=== PATIENT | male | born 1970 | race Caucasian/White ===

== ENCOUNTER → 2020-08-16 15:45 | Outpatient (CLI) | payer OTHER, SELFPAY ==
--- NOTE | ~2020-08-16 | XR_ITS ---
XR ankle LT min 3V DATE: 08/16/2020 15:55 INDICATION: Left ankle medial pain and swelling. No injury. TECHNIQUE: 4 views COMPARISON: None FINDINGS: There is minimal medial soft tissue swelling. No fracture or dislocation of the ankle or di sruption of the ankle mortise. No periosteal reaction or bone destruction. Plantar calcaneal enthesopathy IMPRESSION: Mild soft tissue swelling Plantar calcaneal enthesopathy Reviewed, dictated and finalized at location B. IAL EDUCATION COORDINATOR
== END ==
PROVIDERS: PCP Family Medicine; Visit Provider Family Medicine
DX: M19.079 Primary osteoarthritis, unspecified ankle and foot (principal); M79.89 Other specified soft tissue disorders; M77.32 Calcaneal spur, left foot
CPT/HCPCS: 73610

== ENCOUNTER 2021-07-31 00:15 | Day surgery (SDC) | payer OTHER, SELFPAY ==
[2021-07-18 15:23] VITALS: BMI 29.1
[2021-07-31 06:59] VITALS: BP 129/69; PULSE 91; RESP 20; TEMP 36.8; O2SAT 99
[2021-07-31] MEDS: LACTATED RINGERS 1,000 ML 150 ML IV CONT (07:10)
--- NOTE | 2021-07-31 07:22 | WPDANESEPPF ---
Anes - Initial Pre Proc Eval Procedure: Operation Date: 07/31/21 08:00 Proposed Procedures p Screening Colonoscopy - Mika Bell MD Date/Time: 07/31/21 07:22 Surgeon: Mika Bell MD Pre Op Diagnosis: neoplasm screening Patient Data Age: 51 Gender: M Height: 1.88 m Weight: 103.5 kg Last Vital Signs Temp 36.8 C 07/31/21 06:59 Pulse 91 07/31/21 06:59 Resp 20 07/31/21 06:59 BP 129/69 07/31/21 06:59 Pulse Ox 99 07/31/21 06:59 Allergies Allergy/AdvReac Type Severity Reaction Status Date / Time No Known Allergies Allergy Verified 07/31/21 06:57 Home Medications Medication Instructions Recorded Confirmed Type montelukast 10 mg tablet 10 mg PO QHS #90 tablet 02/20/21 07/18/21 Rx alprazolam 0.25 mg tablet 0.25 mg PO TID PRN 90 Days #90 06/12/21 07/18/21 Rx tablet esomeprazole magnesium 40 mg PO DAILY 07/18/21 07/18/21 History sertraline [Zoloft] 25 mg PO QHS 07/18/21 07/18/21 History simvastatin 20 mg tablet See Rx Instructions .ROUTE 07/24/21 07/31/21 Rx .COMPLEX #90 tablet tadalafil 20 mg tablet See Rx Instructions .ROUTE 07/24/21 07/31/21 Rx .COMPLEX #30 tablet telmisartan 80 mg tablet See Rx Instructions .ROUTE 07/24/21 07/31/21 Rx .COMPLEX #30 tablet Patient hx anesthesia problems: none Family hx anesthesia problems: none Results Review: All pre-operative results and documents have been reviewed as part of the pre-operative evaluation. [facility] Past Medical History Medical History Asthma, mild intermittent Chronic anxiety COVID-19 test positive: 1.25.21/symptomatic Essential hypertension Lumbar radiculopathy Mixed hyperlipidemia Obstructive sleep apnea (adult) (pediatric) Family History Family History Father Diabetes mellitus, Onset Age: 60 Cerebrovascular accident, Onset Age: 60 Family history of congestive heart failure, Onset Age: 60 Other Family history of cardiovascular disease Family history of hypercholesterolemia Hypertension Social History Social History Smoking status: Never smoker Alcohol intake: never Living arrangements: with family Spiritual care concerns: No Anes - Eval Final PreProcedure Day of Procedure 07/31/21 07:22 Patient weight: overweight Heart: regular rate and rhythm Lungs: clear to auscultation Airway: Mallampati scale class II Neurological: alert and oriented Last oral intake: >/= 8 hours ASA classification: III Emergent: no Anesthesia type and monitoring: general GIVS and standard monitoring Results Review: All pre-operative results and documents have been reviewed as part of the pre-operative evaluation. Informed Consent: The patient's anesthetic plan and its attendant risks and benefits were discussed with the patient/family/POA. Questions were solicited and answers provided to the satisfaction of the patient/family/POA.
--- NOTE | 2021-07-31 07:50 | PM.HPGS ---
History of Present Illness History of Present Illness Consent: Risks, benefits, and alternatives have been discussed and questions answered. Patient agrees to proceed with procedure. Chief complaint: neoplasm screening Narrative: Avery Shipley is a 51 year old male here for first screening colonoscopy Review of Systems Constitutional: Constitutional: Denies headache(s) and Denies weakness Eyes: Eyes: Denies blurry vision ENT: Reports Normal hearing present, Denies headache(s) and Denies neck pain Cardiovascular: Cardiovascular: Denies chest pain and Denies dyspnea Respiratory: Respiratory: Denies dyspnea Gastrointestinal: Gastrointestinal: Reports no additional gastrointestinal complaints Genitourinary: Genitourinary: Denies dysuria Musculoskeletal: Musculoskeletal: Denies neck pain Integumentary/Breasts: Skin/Breast: Denies dry skin Neurologic: Reports Normal hearing present, Denies headache(s) and Denies weakness Psychiatric: Psychiatric: Denies anxiety Endocrine: Endocrine: Denies change in body appearance Hematologic/Lymphatic: Hematologic/Lymphatic: Denies easy bleeding Allergic/Immunologic: Allergic/Immunologic: Denies urticaria PMFSH Past Medical History Medical History (Updated 07/31/21 @ 07:50 by Mika Bell MD) Asthma, mild intermittent Chronic anxiety Colon cancer screening COVID-19 test positive: 1.25.21/symptomatic Essential hypertension Lumbar radiculopathy Mixed hyperlipidemia Obstructive sleep apnea (adult) (pediatric) Family History Family History Father Diabetes mellitus, Onset Age: 60 Cerebrovascular accident, Onset Age: 60 Family history of congestive heart failure, Onset Age: 60 Other Family history of cardiovascular disease Family history of hypercholesterolemia Hypertension Social History Social History Smoking status: Never smoker Alcohol intake: never Living arrangements: with family Spiritual care concerns: No Meds Home Medications and Allergies Home Medications Medication Instructions Recorded Confirmed Type montelukast 10 mg tablet 10 mg PO QHS #90 tablet 02/20/21 07/18/21 Rx alprazolam 0.25 mg tablet 0.25 mg PO TID PRN 90 Days #90 06/12/21 07/18/21 Rx tablet esomeprazole magnesium 40 mg PO DAILY 07/18/21 07/18/21 History sertraline [Zoloft] 25 mg PO QHS 07/18/21 07/18/21 History simvastatin 20 mg tablet See Rx Instructions .ROUTE 07/24/21 07/31/21 Rx .COMPLEX #90 tablet tadalafil 20 mg tablet See Rx Instructions .ROUTE 07/24/21 07/31/21 Rx .COMPLEX #30 tablet telmisartan 80 mg tablet See Rx Instructions .ROUTE 07/24/21 07/31/21 Rx .COMPLEX #30 tablet Allergies Allergy/AdvReac Type Severity Reaction Status Date / Time No Known Allergies Allergy Verified 07/31/21 06:57 Vital Signs Vital Signs - 24 hr 07/31/21 06:59 Temperature 98.2 F Pulse Rate 91 Respiratory Rate 20 Blood Pressure 129/69 Pulse Oximetry 99 Exam Const: General: comfortable and no acute distress HENMT: General nose exam: Normal nares present Eyes: General: appearance normal, both eyes and all related structures Neck: Neck: no JVD Resp: Auscultation: clear to auscultation bilaterally Cardio: Rate: regular rate Rhythm: regular rhythm GI: Inspection: non-distended GI Palp: Yes Soft to palpation Skin: General skin exam: normal color Neuro: General: gait normal Speech: normal speech Extrem: General: normal to inspection Psych: Mental Status: mental status grossly normal Assessment and Plan Assessment and plan (1) Colon cancer screening: Code(s): Z12.11 - Encounter for screening for malignant neoplasm of colon Status: Acute Assessment and Plan: colonoscopy
[2021-07-31 08:16] VITALS: BP 96/56; PULSE 87; RESP 17; O2SAT 93
[2021-07-31 08:26] VITALS: BP 95/58; PULSE 81; RESP 19; O2SAT 96
[2021-07-31 08:36] VITALS: BP 102/64; PULSE 65; RESP 15; O2SAT 97
== END 2021-07-31 08:49 | disposition home or self-care (01) ==
PROVIDERS: PCP Family Medicine; Visit Provider Internal Medicine Gastroenterology
PROC: 0DJD8ZZ Inspection of Lower Intestinal Tract, Via Natural or Artificial Opening Endoscopic (ICD-10-PCS; CPT 45378; principal; 2021-07-31 08:00)
DX: Z12.11 Encounter for screening for malignant neoplasm of colon (principal); K57.30 Diverticulosis of large intestine without perforation or abscess without bleeding; K64.8 Other hemorrhoids; I10 Essential (primary) hypertension; E78.5 Hyperlipidemia, unspecified; G47.33 Obstructive sleep apnea (adult) (pediatric); J45.20 Mild intermittent asthma, uncomplicated; F41.9 Anxiety disorder, unspecified; Z86.16 Personal history of COVID-19
CPT/HCPCS: 45378; J2704; J7120

== ENCOUNTER 2022-01-29 20:09 | Emergency (ER) | payer OTHER, SELFPAY ==
[2022-01-29] VITALS (12 sets, daily range): BP systolic 121–143; BP diastolic 77–86; PULSE 57–70; RESP 11–18; TEMP 36.3; O2SAT 98–100
--- NOTE | ~2022-01-29 | CT_ITS ---
EXAMINATION: CTA brain carotid DATE: 01/30/2022 00:11 INDICATION: Visual changes. Headache. TECHNIQUE: Computed tomographic angiography (CTA) of the head was performed with 100 mL Omnipaque-350 intravenous contrast. CTA of the neck was performed with intravenous contrast. Automated exposure co ntrol and iterative reconstruction technique were employed. The dose-length product was 1237.81 mGy-c m. Maximum intensity projection and volume rendered 3D-reconstructions were created by the technologi st on a separate workstation. COMPARISON: Head CT 01/29/2022 FINDINGS: HEAD CTA: There is no intracranial hemorrhage, acute infarction, or abnormal intracranial mass lesion . The ventricles are normal in size. The orbits are normal. There is mild mucosal thickening in the e thmoid sinuses. The mastoid air cells are normal. Left vertebral artery is dominant. There is no sign ificant stenosis of basilar artery or the posterior cerebral arteries. The posterior communicating ar teries are normal. There is no significant stenosis of the intracranial internal carotid arteries or anterior or middle cerebral arteries. Anterior communicating artery is normal. There is no aneurysm. NECK CTA: There is mild emphysema. There is mild scarring at the lung apices. There are nodules in th e thyroid measuring up to 6 mm, likely not clinically significant. There are no pathologically enlarg ed lymph nodes. There is no significant stenosis of the vertebral arteries. There is mild plaque in p roximal left internal carotid artery. There is 0% stenosis of the proximal right internal carotid art mine relative to normal distal artery lumen diameter (NASCET criteria). There is 0% stenosis of the pr oximal left internal carotid artery relative to normal distal artery lumen diameter. There is severe cervical spondylosis. IMPRESSION: 1. Normal brain. 2. No aneurysm or significant intracranial arterial stenosis. 3. 0% stenosis of the proximal internal carotid arteries relative to normal distal artery lumen diame ters (NASCET criteria). Reviewed, dictated and finalized at location A. IMPRESSION: 1. Normal brain. 2. No aneurysm or significant intracranial arterial stenosis. 3. 0% stenosis of the proximal internal carotid arteries relative to normal dis jaylon artery lumen diameters (NASCET criteria).
--- NOTE | ~2022-01-29 | CT_ITS ---
EXAMINATION: CT brain wo con DATE: 01/29/2022 20:38 INDICATION: HEADACHE R EYE VISION BLURRED . TECHNIQUE: Computed tomography (CT) of the head was performed without intravenous contrast. The mA wa s adjusted according to patient size. Iterative reconstruction technique was employed. The dose-lengt h product was 605.33 mGy-cm. COMPARISON: None FINDINGS: No acute intracranial hemorrhage or extra-axial fluid collection. No hydrocephalus, mass, or herniation. No acute ischemic infarct. Unremarkable dural venous sinus attenuation. No acute osseous abnormality. The aerated spaces are clear. Mild intracranial arterial calcification. Partially empty sella. IMPRESSION: No acute intracranial process. Reviewed, dictated and finalized at location K.
--- NOTE | 2022-01-29 20:22 | ECG_ITS ---
Measurements Intervals [place] Rate: 56 P: 53 AL: 171 QRS: 66 QRSD: 98 T: 47 QT: 417 QTc: 406 Interpretive Statements SINUS BRADYCARDIA BORDERLINE ECG NO PREVIOUS ECG AVAILABLE FOR COMPARISON Electronically Signed On 01-30-2022 12:25:33 CDT by Ramírez Benitez M.D.
[2022-01-29 20:43] LABS: Basophils Percent Auto 0.4 % (0.2-1.2); Eosinophils Absolute Auto 0.2 K/mm3 (0-0.3); Eosinophils Percent Auto 2.3 % (0-4.4); Hematocrit 43.8 % (42.0-52.0); Hemoglobin 14.5 g/dL (14.0-18.0); Immature Granulocyte Absolute 0.01 K/mm3 (0.00-0.031); Immature Granulocyte Percent A 0.1 % (0-0.5); Lymphocytes Absolute Auto 2.73 K/mm3 (0.9-3.2); Lymphocytes Percent Auto 39.1 % (18.3-44.2); Mean Corpuscular HGB Conc 33.1 g/dl (32-36); Mean Corpuscular Volume 93.8 fl (80-100); Mean Platelet Volume 8.8 fl (7.4-10.4); Monocytes Percent Auto 13.9 % (2.6-8.5); Neutrophils Absolute Auto 3.1 K/mm3 (1.3-6.7); Neutrophils Percent Auto 44.2 % (45.5-73.1); Platelet Count Result 252 k/mm3 (150-375); Red Blood Count 4.67 M/mm3 (4.6-6.20); Red Cell Distribution Width 12.1 % (11.5-14.5)
[2022-01-29 20:55] LABS: Alanine Aminotransferase 25 U/L (6-50); Albumin Level 4.6 g/dL (3.5-5.1); Alkaline Phosphatase 96 U/L (38-126); Anion Gap 10 mmol/L (8-16); Aspartate Amino Transferase 27 U/L (17-59); Bilirubin,Total 0.4 mg/dL (0.2-1.3); Blood Urea Nitrogen 22 mg/dL (9-20); Calcium 9.3 mg/dL (8.4-10.2); Carbon Dioxide 29 mmol/L (22-30); Chloride 99 mmol/L (98-107); Estimated CRCL calculation 98 ml/min; Estimated Glomerular Filt Rate > 60; Glucose 105 mg/dL (65-110); Potassium 4.1 mmol/L (3.4-5.0); Sodium 138 mmol/L (137-145)
[2022-01-29 21:06] LABS: Troponin I < 0.012 ng/mL (0.000-0.034)
[2022-01-29] MEDS: KETOROLAC 30 MG/ML VIAL (*BKC) IV PUSH (22:53)
[2022-01-29] MEDS: SODIUM CHLORIDE 0.9% IV 1,000 ML 999 ML IV CONT (22:55)
--- NOTE | 2022-01-29 23:49 | ED.HA ---
HPI - Headache General Chief Complaint: Headache Stated Complaint: headache/ blurred vision in right eye Time Seen by Provider: 01/29/22 22:14 History of Present Illness HPI Narrative: Patient is a 52-year-old male who presents ER with headache and blurred vision. Reports today at 3 PM he is having a mild headache which occurs when he is stressed at work. He works as a manager technical training. He reports she then started noticed she was having some blurred vision in his right eye. Blurred vision is present if he looks forward or to the right but if he looks to his left everything is clear. He has known cataract in his right eye that he reports is grade 2 of 3. Denies any focal weakness or numbness in arm or leg. No slurred speech. No history of CVA but reports family history of CVA in brother and father. He does have hypertension and high cholesterol for which she takes his medication. Reports headache is improving but vision abnormality persists. Related Data Allergies Allergy/AdvReac Type Severity Reaction Status Date / Time No Known Allergies Allergy Verified 11/07/21 11:28 Review of Systems Review of Systems: All systems reviewed & are unremarkable except as noted in HPI and below Constitutional: Constitutional: Denies chills, Denies fatigue and Denies fever(s) Eyes: Eyes: Reports change in vision and Denies photophobia Cardiovascular: Cardiovascular: Denies chest pain, Denies rapid heart rate and Denies radiating jaw, neck or arm pain Respiratory: Respiratory: Denies cough and Denies dyspnea Gastrointestinal: Gastrointestinal: Denies abdominal pain, Denies nausea and Denies vomiting Neurologic: Denies dizziness, Denies syncope, Reports headache(s), Denies focal weakness and Denies numbness PMF Past Medical History Medical History (Updated 01/30/22 @ 01:16 by Valentín Kaplan MD) ADHD, predominantly inattentive type Asthma, mild intermittent Chronic anxiety COVID-19 test positive: 1.25.21/symptomatic Essential hypertension Fatty liver Lumbar radiculopathy Mixed hyperlipidemia Obstructive sleep apnea (adult) (pediatric) Raynauds syndrome Surgical History Surgical History (Updated 01/29/22 @ 23:52 by Valentín Kaplan MD) History of spinal surgery Family History Family History Father Diabetes mellitus, Onset Age: 60 Cerebrovascular accident, Onset Age: 60 Family history of congestive heart failure, Onset Age: 60 Other Family history of cardiovascular disease Family history of hypercholesterolemia Hypertension Social History Social History Smoking status: Never smoker Alcohol intake: never Spiritual care concerns: No Exam Narrative: GENERAL: Well-appearing, well-nourished, and in no acute distress. HEAD: Normocephalic, atraumatic. EYES: PERRLA and EOMI. ENT: Mucous membranes moist. CHEST: Clear to auscultation. No respiratory distress. HEART: Regular rate and rhythm. Normal peripheral pulses. ABDOMEN: Soft, nontender, nondistended. EXTREMITIES: Normal range of motion. No edema. SKIN: Warm, dry, no rash. NEURO: No focal deficits. Alert and oriented x3. PSYCH: Normal mood and affect. Course Course Emergency Course: Patient resting comfortably. CTA without stenosis or blockage or aneurysm. Patient with 20/20 vision in the affected eye and 20/30 vision in the left eye. Patient has no headache right now. Recommend he follow-up with his eye doctor. Also discussed he may benefit from wearing bluelight glasses as he is looking at 6 different monitors while at work. Patient verbalized understanding. Discharge home. Patient is also reporting that he occasionally gets kaleidoscope colors in his peripheral vision prior to headaches. That did not happen today but he may be having component of migraine as well. Vital Signs Vital signs: Vital Signs Tempera
[2022-01-30 01:22] VITALS: BP 124/72; PULSE 64; RESP 12; O2SAT 97
== END 2022-01-30 01:24 | disposition home or self-care (01) ==
PROVIDERS: Emergency Provider Emergency Medicine; PCP Family Medicine
DX: G43.909 Migraine, unspecified, not intractable, without status migrainosus (principal); H53.9 Unspecified visual disturbance; J45.20 Mild intermittent asthma, uncomplicated; I10 Essential (primary) hypertension; E78.2 Mixed hyperlipidemia; G47.33 Obstructive sleep apnea (adult) (pediatric); I73.00 Raynaud's syndrome without gangrene; F90.9 Attention-deficit hyperactivity disorder, unspecified type; F41.9 Anxiety disorder, unspecified; Z86.16 Personal history of COVID-19; R00.1 Bradycardia, unspecified
CPT/HCPCS: 36415; 70450; 70496; 70498; 80053; 84484; 85025; 93005; 96361; 96374; 99284; J1885; J7030; Q9967

== ENCOUNTER 2023-04-11 15:29 | Emergency (ER) | payer OTHER, SELFPAY ==
[2023-04-11 15:43] VITALS: BP 129/93; PULSE 76; RESP 16; TEMP 36.4; O2SAT 100
--- NOTE | 2023-04-11 16:38 | ED.URI ---
HPI - URI/Sore Throat General Chief Complaint: Upper Respiratory Infection Stated Complaint: EARACHE/FEVER/SINUS CONGESTION History of Present Illness HPI Narrative: 53-year-old male presented for complaint of sinus congestion for over 8 days, now starting with left ear pressure. Patient is taking mucinex, but reports congestion is worse. Denies sick contacts. Denies shortness of breath, wheezing, nausea, vomiting, fevers or chills. Related Data Allergies Allergy/AdvReac Type Severity Reaction Status Date / Time No Known Allergies Allergy Verified 04/11/23 16:10 Review of Systems Review of Systems: CONSTITUTIONAL: Denies body aches, fever, chills, or sweats. EYES: Denies visual changes, redness, or discharge. ENT: Reports rhinorrhea, congestion, otalgia. CARDIOVASCULAR: Denies chest pain, palpitations, or edema. RESPIRATORY: Denies dyspnea. GASTROINTESTINAL: Denies abdominal pain, nausea, vomiting, or diarrhea. SKIN: Denies rash, itching, or wounds. MUSCULOSKELETAL: Denies back pain, joint pain, or myalgia. NEUROLOGIC: Denies headache PMFSH Past Medical History Medical History ADHD, predominantly inattentive type Asthma, mild intermittent Cataract, right eye lasik/ lens implant 9..22 R eye Chronic anxiety COVID-19 test positive: 1.25.21/symptomatic Essential hypertension Fatty liver Lumbar radiculopathy Mixed hyperlipidemia Obstructive sleep apnea (adult) (pediatric) Raynauds syndrome Surgical History Surgical History History of spinal surgery Family History Family History Father Diabetes mellitus, Onset Age: 60 Cerebrovascular accident, Onset Age: 60 Family history of congestive heart failure, Onset Age: 60 Other Family history of cardiovascular disease Family history of hypercholesterolemia Hypertension Social History Social History Smoking status: Never smoker Alcohol intake: never Substance use type: does not use Lack of Transportation: No Lack of Food: Never True Current Housing: I Have Housing Concerned About Future Housing: No Difficulty Paying Gas/Electric Bills: No Difficulty Paying for Meds: No Living arrangements: with family Spiritual care concerns: No Exam Narrative: GENERAL: Mildly ill-appearing, no acute distress. EYES: conjunctivae clear ENT: Mucous membranes moist. TMs pearly light with normal light reflex bilaterally; left TM mildly obstructed with excess cerumen but appears intact, no tragal or mastoid tenderness. Oropharynx not erythematous. No drooling, no hoarseness, no trismus, uvula midline. No tripod positioning, hot potato voice, or soft palate swelling. NECK: Supple. No lymphadenopathy CHEST: Clear to auscultation, breath sounds equal. No respiratory distress, speaks in full sentences. HEART: Regular rate and rhythm. No murmur heard. SKIN: Warm, dry, no rash. NEURO: Alert and oriented x3. Course Course Emergency Course: Patient is aware of diagnosis, understands and agrees to treatment plan. Anticipatory guidance given. Patient agrees to follow-up as directed and is aware of reasons to seek care at the emergency department. Portions of this record may have been created with voice recognition software Level of Care: Express Care Visit Vital Signs Vital signs: Vital Signs Temperature 97.6 F 04/11/23 15:43 Pulse Rate 76 04/11/23 15:43 Respiratory Rate 16 04/11/23 15:43 Blood Pressure 129/93 H 04/11/23 15:43 Pulse Oximetry 100 04/11/23 15:43 Temperature 97.6 F 04/11/23 15:43 Pulse Rate 76 04/11/23 15:43 Respiratory Rate 16 04/11/23 15:43 Blood Pressure 129/93 H 04/11/23 15:43 Pulse Oximetry 100 04/11/23 15:43 MDM - URI/Sore Throat MDM
== END 2023-04-11 17:40 | disposition home or self-care (01) ==
PROVIDERS: Emergency Provider Nurse Practitioner Family; PCP Family Medicine
DX: J06.9 Acute upper respiratory infection, unspecified (principal); E78.2 Mixed hyperlipidemia; I10 Essential (primary) hypertension
CPT/HCPCS: 99213; G0463

== ENCOUNTER 2024-07-21 10:32 | Outpatient (CLI) | payer OTHER, SELFPAY ==
--- NOTE | ~2024-07-21 | US_ITS ---
EXAMINATION: US soft tissue head and neck DATE: 07/21/2024 10:56 INDICATION: Calcifications near the right submandibular gland. TECHNIQUE: Multiple grayscale and Doppler ultrasound images of the head and neck were obtained. COMPARISON: CTA neck 01/29/2022 FINDINGS: Right submandibular gland and parotid gland are normal. There is no abnormal mass or lympha denopathy. IMPRESSION: 1. Normal right submandibular gland. 2. Review of the prior neck CTA demonstrates calcifications in the palatine tonsils bilaterally. Reviewed, dictated and finalized at location B. BRATOR BAROMETERS IMPRESSION: 1. Normal right submandibular gland. 2. Review of the prior neck CTA demonstrates calcifications in the palatine ton sils bilaterally.
== END 2024-07-21 10:33 | disposition home or self-care (01) ==
LOC: GOSHIMG 10:34
PROVIDERS: PCP Family Medicine; Visit Provider Family Medicine
DX: R93.89 Abnormal findings on diagnostic imaging of other specified body structures (principal)
CPT/HCPCS: 76536

== ENCOUNTER 2024-08-17 10:25 | Emergency (ER) | payer OTHER, SELFPAY ==
--- NOTE | ~2024-08-17 | XR_ITS ---
EXAMINATION: XR chest 2V DATE: 08/17/2024 11:07 INDICATION: Cough and chills. Chest tightness. TECHNIQUE: Frontal and lateral views of the chest were obtained. COMPARISON: Chest 2 views 02/07/2008 FINDINGS: There is mild scarring at the lung apices. No pleural effusion or pneumothorax. The heart s ize is normal. IMPRESSION: 1. Stable mild scarring at the lung apices. Reviewed, dictated and finalized at location A. RINTENDENT CUSTODIAN JANITOR
--- NOTE | 2024-08-17 10:29 | ED.URI ---
HPI - URI/Sore Throat General Chief Complaint: Upper Respiratory Infection Stated Complaint: Flu Symptoms Source: patient and RN notes reviewed Mode of arrival: ambulatory Limitations: no limitations History of Present Illness HPI Narrative: Patient is a 54-year-old male that presents to the [facility] with multiple complaints. Patient states that he developed a cough on Friday after landing in [place]. He woke up Friday and his symptoms had worsened. He reports frequent nonproductive cough that is occasionally productive. He has intermittent chest tightness that accompanies the cough. Denies chest pain currently. Denies shortness of breath. Yesterday, he developed body aches and dysuria. Denies hematuria and history of kidney stones. He denies known fever but reports chills. Related Data Allergies Allergy/AdvReac Type Severity Reaction Status Date / Time No Known Allergies Allergy Verified 08/17/24 10:26 Review of Systems Review of Systems: CONSTITUTIONAL: Denies fever, but reports chills and sweats. EYES: Denies visual changes, redness, or discharge. ENT: Denies otalgia and sore throat CARDIOVASCULAR: Denies chest pain, palpitations, or edema. RESPIRATORY: Reports cough but denies dyspnea. GASTROINTESTINAL: Denies abdominal pain, nausea, vomiting, or diarrhea. GENITOURINARY: Denies dysuria or hematuria. SKIN: Denies rash or itching. MUSCULOSKELETAL: Denies back pain, joint pain, but reports myalgia. NEUROLOGIC: Denies headache, numbness, or weakness. Pertinent positives per HPI. PMF Past Medical History Medical History Cataract, right eye lasik/ lens implant 03.11.22 R eye COVID-19 test positive: 07.24.20/symptomatic Chronic anxiety Asthma, mild intermittent ADHD, predominantly inattentive type Essential hypertension Fatty liver Lumbar radiculopathy Mixed hyperlipidemia Obstructive sleep apnea (adult) (pediatric) Raynauds syndrome Surgical History Surgical History History of spinal surgery Family History Family History Father Diabetes mellitus, Onset Age: 60 Cerebrovascular accident, Onset Age: 60 Family history of congestive heart failure, Onset Age: 60 Other Family history of cardiovascular disease Family history of hypercholesterolemia Hypertension Social History Social History Smoking status: Never smoker Alcohol intake: never Substance use: never Substance use type: does not use Lack of Transportation: No Lack of Food: Never True Current Housing: I Have Housing Concerned About Future Housing: No Difficulty Paying Gas/Electric Bills: No Difficulty Paying for Meds: No Living arrangements: with family Spiritual care concerns: No Comments At the time of my signature, I reviewed and agree with the nursing past medical, surgical, social, and family history. There is no relevant family history pertinent to the patient complaint. Exam Narrative: GENERAL: This is a well-nourished, well-developed patient, in no apparent distress. HEAD: normocephalic, atraumatic. EYES: PERRL. Sclera clear/white. Vision is grossly intact. EARS: External ears normal, auditory canals clear and without drainage, TMs normal without perforation. Hearing grossly intact. NOSE: External nose normal with no obvious nasal discharge, nares without redness, no rhinorrhea. THROAT: Mucous membranes moist, posterior pharynx clear. NECK: Neck supple, non-tender without lymphadenopathy, masses or thyromegaly. CARDIOVASCULAR: Regular rate and rhythm without murmurs, gallops, or rubs. RESPIRATORY: Clear to auscultation. Breath sounds equal bilaterally. No wheezes, rales, or rhonchi. GASTROINTESTINAL: Abdomen soft, non-tender, nondistended. Bowel sounds are active. No hepato-splenomegaly, or palpable masses. No guarding. SKIN: warm, intact with no suspicious lesions or rash, good texture and turgor. NEURO: awake, alert, and oriented to person, place and time. There were no obvious focal neurologic abnormalities. EXTREMITIES: No clubbing, cyanosis, or edema. No joint tenderness, effusion, or edema noted. BACK: Nontender without deformity or crepitance. No flank tenderness. Course Course Level of Care: Express Care Visit Vital Signs Vital signs: Vital Signs Temperature 98.8 F 08/17/24 10:38 Pulse Rate 92 08/17/24 10:38 Respiratory Rate 16 08/17/24 10:38 Blood Pressure 136/85 08/17/24 10:38 Pulse Oximetry 98 08/17/24 10:38 Temperature 98.8 F 08/17/24 10:38 Pulse Rate 92 08/17/24 10:38 Respiratory Rate 16 08/17/24 10:38 Blood Pressure 136/85 08/17/24 10:38 Pulse Oximetry 98 08/17/24 10:38 Reviewed MDM - URI/Sore Throat MDM Narrative Medical decision making narrative: Viral illness may last between 7-21 days; antibiotics do not cure viral illness and are NOT recommended at this time. Also, recommend symptomatic treatment includes: rest, fluids, and increase humidity of the air at home. Recommend Acetaminophen as directed on the bottle to reduce fever, pain, headache. Please schedule a follow-up visit with your personal physician for further evaluation and treatment within 3-5days. If your symptoms persist, change or worsen significantly before you can contact your personal physician then please, without delay, go to the emergency department for further evaluation. Differential Diagnosis Differential diagnosis: Likely upper respiratory infection, viral infection, influenza and other (covid, pneumonia, UTI) Lab Data Attestation: I reviewed the patient's lab results. Labs: Lab Results 08/17/24 Range/Units 11:00 POC Urine Color Yellow POC Urine Clarity Clear POC Urine pH 6.0 POC Ur Specif [place] 1.015 POC Urine Protein Negative (Negative) POC Ur Glucose (UA) Negative (Negative) POC Urine Ketones Negative (Negative) POC Urine Blood Trace (Negative) POC Urine Nitrite Negative (Negative) POC Urine Bilirubin Negative (Negative) POC Urine Urobilinogen 0.2 POC U Leukocyte Esteras Negative (Negative) POC Influenza A Ag Positive (Negative) POC Influenza B Ag Negative (Negative) POC SARS CoV-2 Ag Negative (Negative) Imaging Data Attestation: I personally reviewed and interpreted this imaging study as follows: Radiologist's impression: Close Chest X-Ray (Signed) Marco Farmer - 08/17/24 Launch?[facility] [place] [id number] [facility] [place] [address] XRay Report Signed Patient: Avery Shipley : 1970 MR#: [id number] Age: 54 Acct:[id number] Loc: [facility] ADM Date: 08/17/24Attending Dr: Ordering Physician: Maryanne Chiu APRN Date of Service: 08/17/24 Procedure(s): XR chest 2V Accession Number(s): [id number] cc: Maryanne Chiu APRN; Eloise Mccormick MD~ EXAMINATION: XR chest 2V DATE: 08/17/2024 11:07 INDICATION: Cough and chills. Chest tightness. TECHNIQUE: Frontal and lateral views of the chest were obtained. COMPARISON: Chest 2 views 02/07/2008 FINDINGS: There is mild scarring at the lung apices. No pleural effusion or pneumothorax. The heart size is normal. IMPRESSION: 1. Stable mild scarring at the lung apices. Reviewed, dictated and finalized at location A. IALTY FINISHING UTILITY PERSON Please be advised this is a medical document. It is intended for [id number] communication. It is written in medical language and may contain unfamiliar abbreviations or verbiage. Medical documents are intended to carry relevant information, facts as evident, and the clinical opinion of the practitioner at the time of the encounter. This report may have been done utilizing a voice recognition system. Attempts have been made to correct errors. However, there may be uncorrected grammatical, spelling, and recognition errors present. The file time of this note does not necessarily represent the time of service. Dictated By: Marco Farmer MD 08/17/24 1108 Signed By: <Electronically signed by Marco Farmer MD in OV> 08/17/24 1109 Critical Care Time Critical Care Time Critical Care Time: No Discharge Plan Discharge Clinical Impression: Influenza A Patient Disposition: Home, Self-Care Condition: Stable Instructions: Influenza (ED) Additional Instructions: Viral illness may last between 7-21 days; antibiotics do not cure viral illness and are NOT recommended at this time. Also, recommend symptomatic treatment includes: rest, fluids, and increase humidity of the air at home. Recommend Acetaminophen as directed on the bottle to reduce fever, pain, headache. Please schedule a follow-up visit with your personal physician for further evaluation and treatment within 3-5days. If your symptoms persist, change or worsen significantly before you can contact your personal physician then please, without delay, go to the emergency department for further evaluation. Patient Language: Burkinan Prescriptions: No Action dextroamphetamine-amphetamine 20 mg capsule,extended release 24hr 20 mg PO DAILY Qty: 30 0RF Rx Instructions: JUNE telmisartan 80 mg tablet See Rx Instructions .ROUTE .COMPLEX Qty: 90 1RF Dose Instruction: TAKE 1 TABLET DAILY Rx Instructions: TAKE 1 TABLET DAILY amitriptyline 50 mg tablet 50 mg PO QHS Qty: 90 3RF montelukast 10 mg tablet See Rx Instructions .ROUTE .COMPLEX Qty: 90 3RF Dose Instruction: TAKE 1 TABLET AT BEDTIME Rx Instructions: TAKE 1 TABLET AT BEDTIME rizatriptan [Maxalt-RISK AND INSURANCE MANAGER] 10 mg tablet,disintegrating See Rx Instructions PO .COMPLEX Qty: 14 0RF Rx Instructions: take 1 tab at onset of headache; if no relief may repeat 1 tab after at least 2 hrs; max = 3 tabs/24 hr PO tadalafil 20 mg tablet See Rx Instructions .ROUTE .COMPLEX Qty: 30 3RF Dose Instruction: TAKE INSTRUCTED BY YOUR PRESCRIBER Rx Instructions: TAKE INSTRUCTED BY YOUR PRESCRIBER simvastatin 20 mg tablet See Rx Instructions .ROUTE .COMPLEX Qty: 90 1RF Dose Instruction: TAKE 1 TABLET DAILY Rx Instructions: TAKE 1 TABLET DAILY esomeprazole magnesium 40 mg capsule,delayed release(DR/EC) See Rx Instructions .ROUTE .COMPLEX Qty: 90 1RF Dose Instruction: TAKE 1 CAPSULE DAILY Rx Instructions: TAKE 1 CAPSULE DAILY dextroamphetamine-amphetamine [Adderall XR] 20 mg capsule,extended release 24hr 20 mg PO DAILY Qty: 30 0RF dextroamphetamine-amphetamine 20 mg capsule,extended release 24hr 20 mg PO DAILY 21 Days Qty: 21 0RF Rx Instructions: JULY alprazolam 0.25 mg tablet 1 mg PO TID PRN (Reason: anxiety) Qty: 90 5RF Follow-up/Referrals: Eloise Mccormick MD [Primary Care Provider] - Time of Disposition: 11:12
[2024-08-17 10:38] VITALS: BP 136/85; PULSE 92; RESP 16; TEMP 37.1; O2SAT 98
[2024-08-17 11:03] LABS: EDCOVIDSCREEN Negative (Negative); EDINFLUASCREEN Positive (Negative); EDINFLUBSCREEN Negative (Negative); EDUAAPPEAR Clear; EDUABILI Negative (Negative); EDUABLOOD Trace (Negative); EDUACOLOR1 Yellow; EDUAGLUCOSE Negative (Negative); EDUAKETONE Negative (Negative); EDUALEUKO Negative (Negative); EDUANITRATE Negative (Negative); EDUAPROTEIN Negative (Negative); EDUASPGRAVITY 1.015; EDUAUROBILI 0.2
== END 2024-08-17 11:20 | disposition home or self-care (01) ==
PROVIDERS: Emergency Provider Nurse Practitioner; PCP Family Medicine
DX: J10.1 Influenza due to other identified influenza virus with other respiratory manifestations (principal); Z20.822 Contact with and (suspected) exposure to COVID-19; J45.909 Unspecified asthma, uncomplicated; I10 Essential (primary) hypertension; K76.0 Fatty (change of) liver, not elsewhere classified; E78.2 Mixed hyperlipidemia; I73.00 Raynaud's syndrome without gangrene; Z86.16 Personal history of COVID-19
CPT/HCPCS: 71046; 81003; 87426; 87804; 99213; G0463

== ENCOUNTER 2024-10-29 15:46 | Emergency (ER) | payer OTHER, SELFPAY ==
[2024-10-29 15:59] VITALS: BP 143/73; PULSE 76; RESP 16; TEMP 36.5; O2SAT 100
--- NOTE | 2024-10-29 16:01 | ED.URI ---
HPI - URI/Sore Throat General Chief Complaint: Upper Respiratory Infection Stated Complaint: Sinus Infection Symptoms Time Seen by Provider: 10/29/24 16:00 Source: patient Mode of arrival: ambulatory Limitations: no limitations History of Present Illness HPI Narrative: Rod is a 54-year-old male patient presenting to the clinic today with complaints of possible sinus infection. He reports he has got sinus pressure, headache, congestion, nasal drip, and a productive cough. Symptoms started approximately 10 days ago. He denies any known fevers, chills, body aches. Does endorse a productive cough with yellow-green phlegm as well as blowing his nose and having yellow and green mucus. Related Data Allergies Allergy/AdvReac Type Severity Reaction Status Date / Time No Known Allergies Allergy Verified 10/29/24 15:54 Review of Systems Review of Systems: Pertinent positives per HPI. Patient denies any fever, chills, rash, visual changes, dizziness, shortness of breath, chest pain, palpitations, nausea, vomiting, diarrhea, constipation, abdominal pain, or any urinary issues. [facility] Past Medical History Medical History Cataract, right eye lasik/ lens implant 9.. R eye COVID-19 test positive: 07.24./symptomatic Chronic anxiety Asthma, mild intermittent ADHD, predominantly inattentive type Essential hypertension Fatty liver Lumbar radiculopathy Mixed hyperlipidemia Obstructive sleep apnea (adult) (pediatric) Raynauds syndrome Surgical History Surgical History History of spinal surgery Family History Family History Father Diabetes mellitus, Onset Age: 60 Cerebrovascular accident, Onset Age: 60 Family history of congestive heart failure, Onset Age: 60 Other Family history of cardiovascular disease Family history of hypercholesterolemia Hypertension Social History Social History Smoking status: Never smoker Alcohol intake: never Substance use: never Substance use type: does not use Lack of Transportation: No Lack of Food: Never True Current Housing: I Have Housing Concerned About Future Housing: No Difficulty Paying Gas/Electric Bills: No Difficulty Paying for Meds: No Living arrangements: with family Spiritual care concerns: No Comments At the time of my signature, I reviewed and agree with the nursing past medical, surgical, social, and family history. There is no relevant family history pertinent to the patient complaint. Exam Narrative: General: Well-developed, well nourished, in no apparent distress Head: Normocephalic, atraumatic Eyes: Pupils equally round and reactive to light bilaterally, EOM intact, sclera and conjunctive clear, no discharge, lids normal Ears: TMs intact and clear, ear canals clear, no drainage, grossly hearing normal. Nose: Nares patent, green nasal discharge, moderate inflammation, maxillary and frontal sinus tenderness. Mouth: Oral pharynx red without lesions or masses, good dentition, MMM. postnasal drip Neck: Supple, trachea midline, no enlargement of anterior or posterior cervical nodes, no thyroid masses or goiter palpable. Cardio: Regular rate and rhythm, s1 and s2 normal, no murmur appreciated. Resp: Clear to auscultation bilaterally, no rhonchi, rales, wheezing or rubs Course Course Emergency Course: Portions of this record may have been created with voice recognition software. Level of Care: Express Care Visit Vital Signs Vital signs: Vital Signs Temperature 36.5 C 10/29/24 15:59 Pulse Rate 76 10/29/24 15:59 Respiratory Rate 16 10/29/24 15:59 Blood Pressure 143/73 H 10/29/24 15:59 Pulse Oximetry 100 10/29/24 15:59 Temperature 36.5 C 10/29/24 15:59 Pulse Rate 76 10/29/24 15:59 Respiratory Rate 16 10/29/24 15:59 Blood Pressure 143/73 H 10/29/24 15:59 Pulse Oximetry 100 10/29/24 15:59 Vital signs reviewed MDM - URI/Sore Throat MDM Narrative Medical decision making narrative: At the time of visit patient is resting comfortably on the exam table. Patient appears to be nontoxic. Plan: I suspect patient has acute bacterial rhinosinusitis. Prescription for Augmentin and prednisone was sent to the pharmacy. Supportive measures were discussed with the patient and they voiced understanding discharge instructions and agrees to treatment plan. Return precautions reviewed Differential Diagnosis Differential diagnosis: Likely upper respiratory infection, otitis media, sinusitis, viral infection, bronchitis, influenza, pharyngitis and other (COVID) Discharge Plan Discharge Clinical Impression: Acute bacterial rhinosinusitis Patient Disposition: Home Condition: Stable Instructions: Antibiotic Form, Rhinosinusitis (ED) Additional Instructions: Take prescription medications only as prescribed- prednisone and Augmentin Increase fluids and stay well hydrated Tylenol/motrin for pain/fever Flonase and OTC antihistamines as directed Vicks vapor rub to open sinuses Sinus rinses for congestion Cepacol spray, cough drops, throat lozenges, warm tea with honey/lemon, gargle salt water to soothe throat BRAT diet for diarrhea Clear liquids x 24 hours then advance as tolerated for nausea/vomiting Go to the ED if you develop a worsening in your condition- high fever not controlled by Tylenol or Motrin, dehydration, weakness, lethargy, shortness of breath, or chest pain. Follow up with your PCP in 3-5 days if symptoms persist. Patient Language: Guatemalan Prescriptions: New amoxicillin-pot clavulanate 875-125 mg tablet 1 tablet PO Q12H 10 Days Qty: 20 0RF prednisone 20 mg tablet 40 mg PO DAILY 5 Days Qty: 10 0RF No Action amitriptyline 50 mg tablet 50 mg PO QHS Qty: 90 3RF montelukast 10 mg tablet See Rx Instructions .ROUTE .COMPLEX Qty: 90 3RF Dose Instruction: TAKE 1 TABLET AT BEDTIME Rx Instructions: TAKE 1 TABLET AT BEDTIME tadalafil 20 mg tablet See Rx Instructions .ROUTE .COMPLEX Qty: 30 3RF Dose Instruction: TAKE INSTRUCTED BY YOUR PRESCRIBER Rx Instructions: TAKE INSTRUCTED BY YOUR PRESCRIBER simvastatin 20 mg tablet See Rx Instructions .ROUTE .COMPLEX Qty: 90 1RF Dose Instruction: TAKE 1 TABLET DAILY Rx Instructions: TAKE 1 TABLET DAILY alprazolam 0.25 mg tablet 1 mg PO TID PRN (Reason: anxiety) Qty: 90 5RF telmisartan 80 mg tablet See Rx Instructions .ROUTE .COMPLEX Qty: 90 1RF Dose Instruction: TAKE 1 TABLET DAILY Rx Instructions: TAKE 1 TABLET DAILY esomeprazole magnesium 40 mg capsule,delayed release(DR/EC) See Rx Instructions .ROUTE .COMPLEX Qty: 90 1RF Dose Instruction: TAKE 1 CAPSULE DAILY Rx Instructions: TAKE 1 CAPSULE DAILY dextroamphetamine-amphetamine 20 mg capsule,extended release 24hr 20 mg PO DAILY Qty: 30 0RF Rx Instructions: MAY Follow-up/Referrals: Eloise Mccormick MD [Primary Care Provider] - Time of Disposition: 16:03 Quality NIHSS Nursing Documentation ED NIHSS nursing documentation: reviewed/agree
== END 2024-10-29 16:12 | disposition home or self-care (01) ==
PROVIDERS: Emergency Provider Nurse Practitioner Family; PCP Family Medicine
DX: J01.90 Acute sinusitis, unspecified (principal); I10 Essential (primary) hypertension; J45.909 Unspecified asthma, uncomplicated; K76.0 Fatty (change of) liver, not elsewhere classified; E78.2 Mixed hyperlipidemia; I73.00 Raynaud's syndrome without gangrene; F90.9 Attention-deficit hyperactivity disorder, unspecified type; F41.9 Anxiety disorder, unspecified
CPT/HCPCS: 99213; G0463

== ENCOUNTER 2025-01-19 12:46 | Outpatient (CLI) | payer OTHER, SELFPAY ==
--- OUTSIDE RECORDS SUMMARY | 2025-01-19 12:50 | XMS_ITS | Referral Summary ---
Author Organization [facility] [address] [place] [address] Care Team Providers Care Briquetter Operator Name Role Phone Eloise Mccormick MD Primary Care Provider + Allergies Active Allergy Reactions Criticality Noted Date Comments Amoxicillin Muscle pain Reaction: Myalgias, Ampicillin Potassium Muscle pain Reaction: Myalgias, Medications ALPRAZolam (XANAX) 0.25 mg tablet 1 tablet (0.25 mg total) 02/23/20 22 Active dextroamphetamine- amphetamine XR (ADDERALL XR) 20 mg 24 hr capsule Take 1 capsule (20 mg total) by mouth daily 12/22/[address] (NexIUM) 40 mg capsule 12/24/19 18 Active montelukast (SINGULAIR) 10 mg tablet 1 tablet (10 mg total) 12/24/19 20 Active rizatriptan SAP ARCHITECT (MAXALT-SAP ARCHITECT) 10 mg disintegrating tablet 1 tablet (10 mg total) 12/11/19 24 Active simvastatin (ZOCOR) 20 mg tablet 1 tablet (20 mg total) 10/16/19 24 Active telmisartan (MICARDIS) 80 mg tablet 1 tablet (80 mg total) 10/16/19 24 Active tadalafiL (CIALIS) 20 mg tablet Take 1 tablet (20 mg total) by mouth daily as needed for erectile dysfunction Active Active Problems Problem Noted Date Diagnosed Date Tinnitus of both ears 01/07/2024 Conductive hearing loss, bilateral 01/07/2024 Impacted cerumen of both ears 01/07/2024 Social History Tobacco Use Types Packs/Day Years Used Date Smoking Tobacco: Former Cigarettes Smokeless Tobacco: Never Tobacco Cessation:Counseling Given: Not Answered Alcohol Use Standard Drinks/Week Comments Yes 0 (1 standard drink = 0.6 oz pur e alcohol) Sex and Gender Information Value Date Recorded Sex Assigned at Not on file Legal Sex Male 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 Gender Identity Not on file Sexual Orientation Not on file Last Filed Vital Signs Vital Sign Reading Time Taken Comments Blood Pressure 163/90 10/19/2014 4:07 PM CDT Pulse 68 10/19/2014 4:07 PM CDT Temperature 36.7 C (98.1 F) 10/19/2014 4:07 PM CDT Respiratory Rate 18 01/07/2024 3:17 PM CDT Oxygen Saturation 95% 10/19/2014 4:07 PM CDT Inhaled Oxygen Concentration - - Weight 93 kg (205 lb) 01/07/2024 3:17 PM CDT Height 188 cm (6' 2) 01/07/2024 3:17 PM CDT Body Mass Index 26.32 01/07/2024 3:17 PM CDT Plan of Treatment Not on file Insurance [address] CHOICE PLUS [facility] HMO/PPO Address: [facility] [address] [place] [address] Care Teams Briquetter Operator Relationship Specialty Start Date End Date Eloise Mccormick MD PCP - General 03/01/10
--- OUTSIDE RECORDS SUMMARY | 2025-01-19 12:50 | XMS_ITS | Clinical Summary ---
Author Organization [facility] [address] [place] [address] Care Team Providers Care Track Walker Name Role Phone Eloise Mccormick MD Primary [...] (10 mg total) 12/24/19 20 Active rizatriptan SHORE WORKING SUPERVISOR (MAXALT-SHORE WORKING SUPERVISOR) 10 mg disintegrating tablet 1 tablet (10 [...] 01/07/2024 Impacted cerumen of both ears 01/07/2024 Surgical History Surgery Date Site/Laterality Comments BACK SURGERY Medical History Medical History Date Comments Hypertension Hypertension Allergic rhinitis Anxiety Hypertension GERD (gastroesophageal reflux disease) Family History Medical History Relation Name Comments Cancer Brother 1 Cancer -; Heart disease Brother 1 Stroke Brother 1 Other Brother 2 Germ cell tumor ; Diabetes Father Diabetes mellit us; Heart disease Father Stroke Father Stroke; Cancer Mother Diabetes Mother Diabetes mellit us; Cancer Paternal Grandmother Cancer -; Relation Name Status Comments Brother 1 Brother 2 Father Mother Paternal Grandmother Social History Tobacco Use Types Packs/Day Years Used Date Smoking Tobacco: Former Cigarettes Smokeless Tobacco: Never Tobacco Cessation:Counseling Given: Not Answered Alcohol Use Standard Drinks/Week Comments Yes 0 (1 standard drink = 0.6 oz pur e alcohol) Sex and Gender Information Value Date Recorded Sex Assigned at Not on file Legal Sex 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 Gender Identity Not on file Sexual Orientation Not on file Obstetrics History Last Filed Vital Signs Vital Sign Reading [...] 01/07/2024 3:17 PM CDT Plan of Treatment Health Maintenance Due Date Last Done Comments Colon Cancer Screening-Colonoscopy 1970 Depression Screening 1970 Hepatitis C Screening 1970 Prostate Cancer Screening-PSA 1970 Hepatitis B Screening 1989 Regular Well Visit/Exam 18-64 1989 Zoster Vaccine (1 of 2) 2021 Covid-19 Vaccine ( season) 2024 06/08/2022, 06/25/2021, 10/02/2020, Additional history exists Influenza Vaccine (Season Ended) 2025 06/08/2022, 04/11/2021 DTaP/Tdap/Td Vaccine (2 - Td or Tdap) 08/16/2030 08/16/2020 Pneumococcal vaccine <65 Aged Out No longer eligible based on patient's age to complete this topic Insurance [address] CHOICE PLUS Care Teams Track Walker Relationship Specialty Start Date End Date Eloise Mccormick MD PCP - General 03/01/10
== END 2025-01-19 12:47 | disposition home or self-care (01) ==
LOC: ANHAUDIO 12:47
PROVIDERS: PCP Family Medicine; Visit Provider Family Medicine
DX: H91.90 Unspecified hearing loss, unspecified ear (principal)
CPT/HCPCS: 92557; 92567